=== PATIENT | female | born 1990 ===

== ENCOUNTER 2017-11-14 16:26 | Inpatient (IN) | payer OTHER ==
[~2017-11-14] VITALS: Ht 167.6 cm; Wt 3.2 kg
[2017-11-25] MEDS ORDERED: PRENATAL TABLE1 EAC1 (08:20)
[2017-11-28] MEDS ORDERED: SURFAK240 M1 PO (12:45)
[2017-11-28] MEDS ORDERED: PERCOCET 5-3251 EACH PO (12:45)
== END 2017-11-28 12:57 | disposition home or self-care (01) | DRG 766 ==
LOC: LDR 11-25 07:31 → OB/GYN 11-25 07:31
PROVIDERS: Obstetrics & Gynecology
PROC: 4A1HXCZ Monitoring of Products of Conception, Cardiac Rate, External Approach (ICD-10-PCS; 2017-11-25)
PROC: 3E033VJ Introduction of Other Hormone into Peripheral Vein, Percutaneous Approach (ICD-10-PCS; 2017-11-25)
PROC: 4A033R1 Measurement of Arterial Saturation, Peripheral, Percutaneous Approach (ICD-10-PCS; 2017-11-25)
PROC: 10D00Z1 Extraction of Products of Conception, Low, Open Approach (ICD-10-PCS; principal; 2017-11-25 20:15)
DX: O61.0 Failed medical induction of labor (principal); O76 Abnormality in fetal heart rate and rhythm complicating labor and delivery; O62.1 Secondary uterine inertia; Z3A.39 39 weeks gestation of pregnancy; Z37.0 Single live birth

== ENCOUNTER 2021-06-22 09:30 | Inpatient (IN) | payer OTHER ==
[~2021-06-22] VITALS: Ht 167.6 cm; Wt 3.6 kg
[~2021-06-22 09:30] MED LIST: PERCOCET 5-3251 EACH PO; PRENATAL TABLE1 EAC1; SURFAK240 M1 PO
[2021-06-26] MEDS ORDERED: IRON325 MG PO (08:12)
[2021-06-26] MEDS ORDERED: PRENATAL CAPLE1 EAC1 PO (08:12)
[2021-06-26] MEDS ORDERED: FUSION PLUS CA1 EACH (11:35)
[2021-06-26] MEDS ORDERED: SOD FER GL62.5 MG/5 (11:35)
== END 2021-06-29 10:48 | disposition home or self-care (01) | DRG 785 ==
LOC: O/R 06-26 07:18 → OB/GYN 06-26 07:18
PROVIDERS: ADMIT Specialist; ATTEND Specialist
PROC: 0UB70ZZ Excision of Bilateral Fallopian Tubes, Open Approach (ICD-10-PCS; 2021-06-26)
PROC: 4A1HXCZ Monitoring of Products of Conception, Cardiac Rate, External Approach (ICD-10-PCS; 2021-06-26)
PROC: 10D00Z1 Extraction of Products of Conception, Low, Open Approach (ICD-10-PCS; principal; 2021-06-26 11:15)
DX: O34.211 Maternal care for low transverse scar from previous cesarean delivery (principal); Z3A.39 39 weeks gestation of pregnancy; Z37.0 Single live birth; Z20.822 Contact with and (suspected) exposure to COVID-19; Z30.2 Encounter for sterilization